=== PATIENT | female | born 2000 | race Hispanic/Latino ===

== ENCOUNTER 2023-01-23 16:11 | Emergency (ER) | payer OTHER, SELFPAY ==
[2023-01-23 16:17] VITALS: BP 117/64; PULSE 89; RESP 16; TEMP 36.9; O2SAT 100; BMI 22.3
--- NOTE | 2023-01-23 16:24 | ED_ITS ---
HPI - Ear Problem <Nicole Childers PA-C - Last Filed: 01/23/23 16:41> General Chief complaint: Ear Stated complaint: ear pain doesnt go away Time Seen by Provider: 01/23/23 16:16 Source: patient Mode of arrival: Ambulatory History of Present Illness HPI Narrative: 22-year-old female presents with concern for bilateral ear pain worse on the right. Patient states that she has been having some ear pain and pressure for a few days mostly on the right but then today the left started hurting. 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 Patient came into the ER because she is concerned that she is having ear aching pain and pressure and wants some resolution for her symptoms. She states she has not had any drainage from her ears has not had fevers chills headache sore throat congestion cough, hearing change or any other symptoms. She does not swim, he is hot tub or take baths frequently and has no known history of this kind of ear discomfort. Related Data Allergies Allergy/AdvReac Type Severity Reaction Status Date / Time No Known Drug Allergies Allergy Verified 01/23/23 16:17 Review of Systems <Nicole Childers PA-C - Last Filed: 01/23/23 16:41> Review of Systems Narrative: See HPI Patient History <Nicole Childers PA-C - Last Filed: 01/23/23 16:41> Social History Smoking Status: Never smoker Smoking Status: Never smoker Substance Use Type: does not use Exam <Nicole Childers PA-C - Last Filed: 01/23/23 16:41> Narrative Exam Narrative: GENERAL: 22 year old patient appears stated age. Well-developed patient, in mild distress. HEAD: Atraumatic. Normocephalic. EYES: Pupils equal round and reactive. Extraocular motions intact. No scleral icterus. No injection or drainage. ENT: Nose without bleeding, purulent drainage. Throat without erythema, tonsillar hypertrophy or exudate. Airway patent. Bilateral ear canals are slightly swollen although able to visualize the TM bilaterally and is not bulging or retracted, mild injection bilaterally more prominent on the right. The ear canals have thick yellowish white shiny material present consistent with otitis externa. There is no mastoid tenderness, inflammation or erythema. There is some pain with manipulation of the tragus most prominent on the right. NECK: Trachea midline. Non tender CARDIOVASCULAR: Regular rate and rhythm without murmurs, gallops, or rubs. RESPIRATORY: Clear to auscultation. Breath sounds equal bilaterally. No wheezes, rales, or rhonchi. GASTROINTESTINAL: Abdomen nondistended. EXTREMITIES: Moving all extremities, normal gait NEURO: AOx3. SKIN: No rash or erythema of visible areas Initial Vital Signs Initial Vital Signs: Vital Signs Temperature 98.4 F 01/23/23 16:17 Pulse Rate 89 01/23/23 16:17 Respiratory Rate 16 01/23/23 16:17 Blood Pressure 117/64 01/23/23 16:17 Pulse Oximetry 100 01/23/23 16:17 Oxygen Delivery Method Room Air 01/23/23 16:17 <Tea Pandey DO - Last Filed: 01/24/23 07:19> Initial Vital Signs Initial Vital Signs: Vital Signs Temperature 98.4 F 01/23/23 16:17 Pulse Rate 89 01/23/23 16:17 Respiratory Rate 16 01/23/23 16:17 Blood Pressure 117/64 01/23/23 16:17 Pulse Oximetry 100 01/23/23 16:17 Oxygen Delivery Method Room Air 01/23/23 16:17 Course <Nicole Childers PA-C - Last Filed: 01/23/23 16:41> Orders Ordered: Discontinued Medications Ciprofloxacin/Dexamethasone (Ciprofloxacin/Dexameth Otic Susp) 4 drops EAR-BOTH NOW ONE Stop: 01/23/23 16:24 Last Admin: 01/23/23 16:33 Dose: 4 drops Documented By: KENDALL Vital Signs Vital signs: Vital Signs - 8 hr 01/23/23 16:17 Temperature 98.4 F Pulse Rate 89 Respiratory Rate 16 Blood Pressure 117/64 Pulse Oximetry 100 Oxygen Delivery Method Room Air <Tea Pandey DO - Last Filed: 01/24/23 07:19> Orders Ordered: Discontinued Medications Ciprofloxacin/Dexamethasone (Ciprofloxacin/Dexameth Otic Susp) 4 drops EAR-BOTH NOW ONE Stop: 01/23/23 16:24 Last Admin: 01/23/23 16:33 Dose: 4 drops Documented By: KENDALL Vital Signs Vital signs: Vital Signs - 8 hr 01/23/23 16:17 Temperature 98.4 F Pulse Rate 89 Respiratory Rate 16 Blood Pressure 117/64 Pulse Oximetry 100 Oxygen Delivery Method Room Air Medical Decision Making <Nicole Childers PA-C - Last Filed: 01/23/23 16:41> Differential Diagnosis Differential Diagnosis: Otitis externa, otitis media, allergies, congestion MDM Narrative Medical decision making narrative: This is a well-appearing 22-year-old female who presents with her mother with concern for ear pain. Ear pain on the right with pressure for the last couple of days and beginning on the left today. She was seen at [facility] earlier today and actually had a prescription sent in for ear drops but states she was unable to get them until Wednesday from the pharmacy according to the pharmacy. Did discuss with the patient possibly calling the pharmacy and having her prescription transferred to a different pharmacy but we were able to get dexamethasone ciprofloxacin drops from pharmacy here in hospital today and she is given an initial dose bilaterally in the ER and sent out with the remainder of the bottle with directions to use 4 drops in each ear twice daily for 7 days. Patient is advised to follow up closely with her primary care provider, monitor for new or worsening symptoms and seek re-evaluation if these develop. Return precautions provided, follow-up plan discussed, all questions answered. Discharge Plan Departure Patient Disposition: Home Clinical Impression: Otitis externa Qualifiers: Otitis externa type: unspecified type Chronicity: acute Laterality: bilateral Qualified Code(s): H60.503 - Unspecified acute noninfective otitis externa, bilateral Instructions: How to Instill Ear Drops Activity Restrictions/Additional Instructions: *You have been diagnosed with [Otitis externa ] *What to do: *Please continue to take your regular medications as directed. [ ] New medication prescriptions sent to your pharmacy: [ ] [1 ] New medication written as a paper prescription Ciprofloxacin dexamethasone drops provided in ER, see directions below. [ ] No new medications given *Please follow up with your primary care provider in 2-3 days, call for an appointment. Let them know you were seen in the Emergency Department and that we ask that you be seen in follow up. We will electronically transmit a record of today's note if your PCP is in our system. I am sorry that you were unable to get the medicine you needed after your clinic visit earlier today, you do have an external ear infection that needs antibiotics and we gave you your 1st dose of this today in the emergency department. If you develop fevers, pain or swelling behind her ear or your ear pain is getting worse please make sure you get re-evaluated. We were able to provide you with ciprofloxacin dexamethasone drops which are antibiotics with an anti-inflammatory. I would like you to use these drops twice a day for 7 days four drops in each ear. Please abstain from taking baths, swimming, or using hot tubs until your infection has resolved. *If you do not have a primary care provider please contact the [facility] Resource line at [phone]. They will ask some questions about your medical history and help get you set up with a doctor in the community. *Return to Emergency Department if you should have any new, worsening or concer rosy symptoms, such as [fever greater than 101 F, shaking chills, worsening pain, persistent vomiting or other bothersome symptoms] Stand Alone Forms: Patient Portal/API ED Sign-out <Tea Pandey DO - Last Filed: 01/24/23 07:19> Cosign ED Attending Michelleature Attestation: I was available for consultation.
[2023-01-23] MEDS: CIPROFLOXACIN/DEXAMETH OTIC SUSP 4 DROPS EAR-BOTH (16:33)
== END 2023-01-23 16:39 | disposition home or self-care (01) ==
LOC: ED 16:35
PROVIDERS: Emergency Provider Student in an Organized Health Care Education/Training Program
DX: H60.503 Unspecified acute noninfective otitis externa, bilateral (principal)
CPT/HCPCS: 99282